=== PATIENT | male | born 1965 | race Caucasian/White ===

== ENCOUNTER 2024-04-23 15:27 | Emergency (ER) | payer SELFPAY ==
[2024-04-23] VITALS (11 sets, daily range): BP systolic 105–137; BP diastolic 59–79; PULSE 62–76; RESP 12–16; TEMP 36.6; O2SAT 94–98; BMI 28.8
--- NOTE | 2024-04-23 15:49 | CT_ITS ---
STUDY: CT ABDOMEN AND PELVIS WITH CONTRAST REASON FOR EXAM: Male, 58 years old. low back/pelvis trauma RADIATION DOSAGE (If Supplied By Facility): CTDIvol = ( 10.83 ) mGy, DLP = ( 639.21 ) mGycm TECHNIQUE: Transaxial images were obtained from the dome of the diaphragm to the symphysis pubis without oral contrast. IV 100mL Isovue-300 was administered. Sagittal and coronal images were reconstructed. Individualized dose optimization techniques were used for this CT. The protocol utilizes one or more of the following dose reduction techniques: automated exposure control, adjustment of mA and/or kV according to patient size,and/or use of iterative reconstruction technique. COMPARISON: None. FINDINGS: The visualized lung bases are unremarkable. The visualized portions of the heart are within normal limits. Simple left hepatic cyst measures 13 mm. Normal gallbladder and extrahepatic biliary system. Normal spleen. Normal pancreas. Normal bilateral adrenal glands. Normal right kidney. 6 cm simple left renal cortical cyst. No further follow-up required as appears simple/benign. Normal visualized stomach. Multiple air-fluid levels in the small bowel. Colonic diverticulosis. The appendix is visualized and appears normal. Normal abdominal aorta. Normal inferior vena cava. Normal retroperitoneum. Normal urinary bladder. Calcifications within the central prostate. Prostate appears prominent. Anterior abdominal wall mesh. Fat-containing umbilical hernia. Degenerative disc disease L5-S1. Mild scoliosis. CT/Abdomen/Pelvis W IV Cont ONLY IMPRESSION: Ileus. Nondisplaced fractures of the seventh eighth ninth 10th and 11th ribs on the left posteriorly. Avulsion fracture transverse process L3 on the left. Electronically Signed: Donal Kirkpatrick MD at 17:08 EDT ,
--- NOTE | 2024-04-23 15:54 | EX.ED.GENINJ ---
HPI History of Present Illness Chief Complaint: Fall Informant: patient, spouse/S.O. and EMS Narrative Narrative: 58-year-old male was on a ladder blowing out the leaf gutters when he fell backwards landing what he believes is the ladder and leaf blower backpack he had on. He notes pain in the low back. No loss of consciousness. He denies headache abdominal pain. Notes the pain seems to wrap down towards the lower anterior pelvis. EMS notes abrasion contusion to posterior left elbow little finger of hand. He does not take any medications/blood thinners. No vomiting. He denies any loss of functionality of the lower EXTR both motor and sensory. PFSH PFSH Home Medications ?Medication ?Instructions ?Recorded ?Last Taken ?Type NK 04/23/24 Unknown History Allergy/AdvReac Type Severity Reaction Status Date / Time No Known Allergies Allergy Verified 04/23/24 15:29 Surgical History History of tonsillectomy and adenoidectomy Hx of hernia repair Social History Smoking Status: Never smoker ROS ROS ED Constitutional Constitutional ED: Denies chills, fever(s) or weight loss Eyes Eyes: Denies change in vision or diplopia ENT ENT ED: Denies ear pain, rhinorrhea or sore throat Cardiovascular Cardiovascular: Denies chest pain, orthopnea, palpitations or racing heartbeat Respiratory/Chest Respiratory/Chest: Denies cough, dyspnea or orthopnea Gastrointestinal Gastrointestinal: Denies abdominal pain, diarrhea, nausea or vomiting Genitourinary Genitourinary ED: Denies dysuria, hematuria or urinary frequency Musculoskeletal Musculoskeletal: Reports back pain and other Details: Lower pelvis pain ; Denies arthralgias, myalgias or neck pain Integumentary Reports Abrasions; Denies abscess or rash Neurologic Neurologic: Denies headache(s), paresthesias or weakness Psychiatric Psychiatric: Denies anxiety, depression, suicidal ideation or suicidal thoughts Endocrine Endocrinology: Denies polydipsia, polyphagia or polyuria Allergic/Immunologic Allergic/Immunologic ED: Denies mouth swelling, tongue swelling or urticaria EXAM Physical Exam Const Vital Signs: 04/23/24 15:29 04/23/24 15:34 04/23/24 16:28 Temperature 97.9 F 97.9 F Temperature Source Oral Pulse Rate 76 74 Respiratory Rate 16 16 Respiratory Effort Normal Non-Labored Respiratory Depth Normal Respiratory Pattern Normal Blood Pressure 137/67 H 105/63 Blood Pressure Mean 90 77 Pulse Ox 97 97 98 Oxygen Delivery Method Room Air Room Air Room Air 04/23/24 17:00 04/23/24 18:00 04/23/24 19:00 Temperature Temperature Source Pulse Rate 64 63 66 Respiratory Rate 16 16 16 Respiratory Effort Respiratory Depth Respiratory Pattern Blood Pressure 125/72 H 126/79 H 119/72 Blood Pressure Mean 89 94 87 Pulse Ox 98 98 98 Oxygen Delivery Method Room Air Room Air Room Air Positive well nourished and well developed General Appearance ED: well developed and NAD HEENT Reports normocephalic, head/scalp atraumatic and moist mucous membranes Eyes PERRL and EOMs intact bilaterally Neck no lymphadenopathy, supple and no JVD Neck Narrative: Patient initially in c-collar. He has no midline tenderness no paraspinal tenderness. He has full painless range of motion. Chest Wall inspection of chest normal and palpation of chest normal Resp normal respiratory effort and clear to auscultation bilaterally Cardio regular rate, regular rhythm and no murmurs GI normal to inspection, nondistended, normoactive bowel sounds and non-tender Palpation: soft Back/Spine no CVA tenderness Back/Spine Narrative: Patient has focal tenderness around L3-L5 in the midline and paraspinally. He has tenderness in the area of the left iliac crest posteriorly Extremity normal to inspection General Extremety ED: Negative for edema General Extremity: Negative for edema Neuro oriented x3, CN's II-XII intact bilaterally, moves all extremities, no focal motor deficits and no sensory deficits noted Mereta Coma Scale: document GCS findings Spontaneous Obeys Commands Oriented 15 Sensorium / Orientation: alert Motor Exam: strength 5/5 throughout Deep Tendon Reflexes: Rt Patellar (L4): 2+, Lt Patellar (L4): 2+, Rt Ankle (S1): 2+ and Lt Ankle (S1): 2+ Deep Tendon Reflexes Back: Rt Patellar (L4): 2+, Lt Patellar (L4): 2+, Rt Ankle (S1): 2+ and Lt Ankle (S1): 2+ Psych mental status grossly normal Mood & Affect: Negative for depressed or tearful Skin no rashes or lesions noted Skin Narrative: Superficial abrasions noted to left middle finger left posterior elbow with small contusion. MDM MDM MDM Narrative Medical decision making narrative: Differential diagnosis includes but not limited to rib fracture lumbar spine fracture thoracic spine fracture pelvic fracture liver spleen renal laceration hematoma Patient blood work shows a slight leukocytosis nonspecific at 11.1 normal creatinine 0.93 glucose 126 LFTs within normal limits. CT of the pelvis with IV contrast was obtained which demonstrates left rib fractures of the seventh or eighth ninth 10th and 11th ribs. There is a nondisplaced transverse process fracture of L3. There is soft tissue contusion noted of the back. Patient initially received Dilaudid and Ativan for pain control and muscle spasm. Because of the above injuries additional CTs of the head cervical spine and chest were obtained. Small amount of presumed hemothorax is noted but no significant pneumothorax or large pulmonary contusion is seen. Patient and his were updated several times by this physician. I spoke with them about transferring to trauma center given the above findings as this institution is not a trauma center. They are requesting [facility]. I spoke with Dr. Bautista from trauma surgery who is accepted the patient. ED attending was notified. We are currently awaiting ground transportation. History & Record Review Discussion w/independent historian: Patient and Significant other Lab Data Attestation: I reviewed the patient's lab results. Labs: Laboratory Results - last 24 hr 04/23/24 15:52 WBC 11.1 H RBC 4.64 Hgb 13.6 Hct 40.8 MCV 87.9 MCH 29.3 MCHC 33.3 RDW Std Deviation 42.8 RDW Coeff of Robby 13.3 Plt Count 247 MPV 9.6 Immature Gran % (Auto) 0.900 Neut % (Auto) 64.4 Lymph % (Auto) 27.3 Grayson % (Auto) 5.7 Eos % (Auto) 1.1 Baso % (Auto) 0.6 Absolute Neuts (auto) 7.1 Absolute Lymphs (auto) 3.02 Nucleated RBC % 0 Sodium 140 Potassium 3.6 Chloride 109 H Carbon Dioxide 26.0 Anion Gap 5 BUN 19 H Creatinine 0.93 Estim Creat Clear Calc 91.21 Est GFR (MDRD) Af Amer 106 Est GFR (MDRD) Non-Af 88 BUN/Creatinine Ratio 20.4 H Glucose 126 H Calcium 8.7 Total Bilirubin 1.00 Direct Bilirubin 0.17 AST 36 ALT 39 Alkaline Phosphatase 58 Total Protein 6.5 Albumin 3.6 Globulin 2.9 Radiography Diagnostic Testing: Clinical Impression(s) from Imaging Studies Abdomen/Pelvis CT 04/23/24 15:49 IMPRESSION: Ileus. Nondisplaced fractures of the seventh eighth ninth 10th and 11th ribs on the left posteriorly. Avulsion fracture transverse process L3 on the left. Electronically Signed: Donal Kirkpatrick MD at 17:08 EDT Reading Location ID and State: [employer] / [place] Tel , Service support , Brain CT 04/23/24 17:40 IMPRESSION: Normal unenhanced CT scan of the brain. Electronically Signed: Donal Kirkpatrick MD at 18:57 EDT Reading Location ID and State: [employer] [place] Tel , Service support , Cervical Spine CT 04/23/24 17:40 IMPRESSION: No fracture Electronically Signed: Donal Kirkpatrick MD at 19:09 EDT Reading Location ID and State: [employer] / [place] Tel , Service support , Chest CT 04/23/24 17:40 IMPRESSION: Nondisplaced fracture of the posterior seventh 8/9 and 10th ribs on the left. No pneumothorax. Electronically Signed: Donal Kirkpatrick MD at 19:06 EDT Reading Location ID and State: [employer] / [place] Tel , Service support , Management Discussion w/another healthcare provider: Leak Gang Supervisor ([facility] Trauma Surgery Dr. Bautista) Discharge Plan Triage Chief Complaint: Fall ED Provider: Cam Thomas Dx/Rx/DC Orders Clinical Impression: Lumbar transverse process fracture, Multiple fractures of ribs of left side, Fall, Back contusion Prescriptions: No Action NK Primary Care Provider: Tyler Meadows Referrals: Tyler Meadows DO [Primary Care Provider] - Print Language: Malay Disposition Disposition: Acute Care Hospital Discharge Location: [facility]
[2024-04-23] MEDS: HYDROmorphone 1 MG/ML Syringe IV ×2 (15:56→23:55)
[2024-04-23] MEDS: Ondansetron 4 MG/2 ML Vial IV (15:56)
[2024-04-23] MEDS: LORazepam 2 MG/ML Syringe 1 MG IV (15:57)
[2024-04-23 16:05] LABS: Absolute Lymphocyte Count 3.02 X10^3/uL (0.83-4.51); Absolute Neutrophil Count 7.1 X10^3/uL (2.0-7.7); Basophil# 0.07 X10^3/uL; Basophil% 0.6 % (0-1); Eosinophil# 0.12 X10^3/uL; Eosinophils% 1.1 % (0-5); Hematocrit 40.8 % (40-54); Hemoglobin 13.6 g/dL (13.0-16.5); Lymphocyte # 3.02 X10^3/ul (0.83-4.51); Lymphocyte % 27.3 % (19-41); Mean Corp Hgb Conc 33.3 g/dL (32-36); Mean Corpuscular Hgb 29.3 pg (27.0-32.0); Mean Corpuscular Volume 87.9 fL (80-94); Mean Platelet Vol. 9.6 fl (6.2-12.0); Monocyte# 0.63 X10^3/uL; Monocyte% 5.7 % (0-10); NRBC Flagged by Analyzer 0 % (0-5); Neutrophil # 7.11 X10^3/uL (2.7-7.7); Neutrophil % 64.4 % (47-70); Platelet Count 247 K/mm3 (150-450); RBC Distribution Width CV 13.3 % (11.6-14.6); RBC Distribution Width SD 42.8 fl (35.1-43.9); Red Blood Count 4.64 M/mm3 (4.6-6.2); White Blood Count 11.1 K/mm3 (4.4-11.0)
[2024-04-23 16:21] LABS: AST(SGOT) 36 U/L (15-37); Alanine Aminotransfer ALT/SGPT 39 U/L (16-61); Albumin, Serum 3.6 g/dL (3.2-5.0); Alkaline Phosphatase 58 U/L (45-117); Anion Gap 5 (5-15); BUN 19 mg/dL (7-18); BUN/Creat Ratio 20.4 RATIO (10-20); Bilirubin, Direct 0.17 mg/dL (0.00-0.30); Calcium,Total 8.7 mg/dL (8.5-10.1); Chloride 109 mmol/L (98-107); Creatinine, Serum 0.93 mg/dL (0.70-1.30); EST Glomerular Filtration Rate 88 mL/min (>60); Est Glom Filt Rate - Afr Amer 106 mL/min (>60); Estimated Creatinine Clearance 91.21 ml/min; Globulin 2.9 g/dL (2.2-4.2); Glucose 126 mg/dL (74-106); Potassium 3.6 mmol/L (3.5-5.1); Protein, Total 6.5 g/dL (6.4-8.2); Sodium Level 140 mmol/L (136-145)
--- NOTE | 2024-04-23 17:40 | CT_ITS ---
INDICATION: left rib trauma (just given contrast) EXAMINATION: CT CHEST WITHOUT CONTRAST - CT Chest W/O Contrast Injection TECHNIQUE: Helically acquired images were obtained of the chest. A radiation dose optimization technique was used for this scan. The protocol utilizes one or more of the following dose reduction techniques: automated exposure control, adjustment of mA and/or kV according to patient size,and/or use of iterative reconstruction technique. IV Contrast dosage and agent: None. COMPARISON: None. FINDINGS: LUNGS, PLEURA AND LARGE AIRWAYS: No masses, consolidation, or edema. No pleural effusion or thickening. No pneumothorax. Bilateral subsegmental atelectasis. Possible Bochdalek hernia right hemidiaphragm containing only fat. THYROID: No thyroid lesions. HEART AND PERICARDIUM: Calcific coronary artery disease. No pericardial effusion. CORONARY ARTERIES: Coronary artery calcification present. VESSELS: Thoracic aorta is not dilated. MEDIASTINUM AND FRITZ: No mediastinal or hilar adenopathy. Esophagus is unremarkable. No hiatal hernia. UPPER ABDOMEN: No acute pathology. BONES: Nondisplaced fractures of the seventh eighth ninth and 10th ribs on the left. CT/Chest without Contrast IMPRESSION: Nondisplaced fracture of the posterior seventh 8/9 and 10th ribs on the left. No pneumothorax. Electronically Signed: Donal Kirkpatrick MD at 19:06 EDT ,
--- NOTE | 2024-04-23 17:40 | CT_ITS ---
STUDY: CT BRAIN WITHOUT CONTRAST REASON FOR EXAM: Male, 58 years old. injury RADIATION DOSAGE (If Supplied By Facility): CTDIvol = ( 44.99 ) mGy, DLP = ( 812.88 ) mGycm TECHNIQUE: Transaxial CT imaging of the brain was performed without administration of intravenous contrast material. Individualized dose optimization techniques were used for this CT. The protocol utilizes one or more of the following dose reduction techniques: automated exposure control, adjustment of mA and/or kV according to patient size,and/or use of iterative reconstruction technique. COMPARISON: No relevant priors. FINDINGS: Normal soft tissue structures. Normal calvarium. Normal size ventricles and extra-axial spaces for the patient''s age. Normal white matter tracts of the cerebral hemispheres. Normal basal ganglia and thalami. Normal brainstem. Normal cerebellum. There is no intracranial hemorrhage. There are no findings of an acute ischemic infarction. Normal visualized paranasal sinuses. CT/Brain/Head without Contrast IMPRESSION: Normal unenhanced CT scan of the brain. Electronically Signed: Donal Kirkpatrick MD at 18:57 EDT ,
--- NOTE | 2024-04-23 17:40 | CT_ITS ---
STUDY: CT CERVICAL SPINE WITHOUT CONTRAST REASON FOR EXAM: Male, 58 years old. trauma RADIATION DOSAGE (If Supplied By Facility): CTDIvol = ( 22.17 ) mGy, DLP = ( 474.68 ) mGycm TECHNIQUE: High resolution transaxial imaging was performed without contrast material. Sagittal and coronal images were reconstructed. Individualized dose optimization techniques were used for this CT. The protocol utilizes one or more of the following dose reduction techniques: automated exposure control, adjustment of mA and/or kV according to patient size,and/or use of iterative reconstruction technique. COMPARISON: None FINDINGS: Spondylosis. Normal craniovertebral junction. Normal anterior atlantoaxial articulation. Normal odontoid process. Normal cervical lordosis. Normal vertebral bodies and posterior osseous elements. C2-3: Normal endplates. Normal disc height and morphology. Normal central canal and intervertebral neuroforamina. C3-4: Normal endplates. Normal disc height and morphology. Normal central canal and intervertebral neuroforamina. C4-5: Normal endplates. Normal disc height and morphology. Normal central canal and intervertebral neuroforamina. C5-6: Normal endplates. Normal disc height and morphology. Normal central canal and intervertebral neuroforamina. C6-7: Normal endplates. Normal disc height and morphology. Normal central canal and intervertebral neuroforamina. C7-T1: Normal endplates. Normal disc height and morphology. Normal central canal and intervertebral neuroforamina. Normal visualized soft tissue structures. CT/Spine Cervical without Contras IMPRESSION: No fracture Electronically Signed: Donal Kirkpatrick MD at 19:09 EDT ,
[2024-04-23] MEDS: HYDROmorphone 0.5 MG/0.5 ML SYRINGE IV (17:49)
--- NOTE | 2024-04-23 19:53 | ED.RN ---
REPORT CALLED TO SID TYLER AT [facility].
[2024-04-24] VITALS: BP 120/74; PULSE 65; RESP 13; O2SAT 96
== END 2024-04-24 00:03 | disposition short-term general hospital (02) ==
PROVIDERS: Emergency Provider Emergency Medicine; PCP Family Medicine; Referring Provider Emergency Medicine; Visit Provider Emergency Medicine
DX: S32.038A Other fracture of third lumbar vertebra, initial encounter for closed fracture (principal); S22.42XA Multiple fractures of ribs, left side, initial encounter for closed fracture; S20.229A Contusion of unspecified back wall of thorax, initial encounter; W11.XXXA Fall on and from ladder, initial encounter; Y93.89 Activity, other specified
CPT/HCPCS: 70450; 71250; 72125; 74177; 80048; 80076; 85025; 96374; 96375; 96376; 99285; Q9967; A4216; J2405

== ENCOUNTER 2024-06-02 15:30 | Outpatient (RCR) | payer SELFPAY ==
--- NOTE | 2024-05-05 18:53 | HP.PTEVAL ---
Patient's Visit Information Visit Information Visit Information: ZAIRA MORA is a 58 year old M referred to Physical Therapy by PAVAN MONTERO with a diagnosis of multiple rib fractures, closed transverse L vertebrae FX. Date of Evaluation: 05/05/24 Physical Therapist: GHISLAINE Pearl Visit Plan Frequency: 2x /Week Duration: 2 Months Plan: Pt is not able to lift... only 13 days post fx (11-13) ALL EXERCISES SHOULD BE PAIN FREE 2X/ week for 8 weeks for neutral spine core stability, functional transfers (including bed mobility if needed), AAROM to AROM B shoulder (L sided rib fx's), Postural exercises, LE strength with HEP HEP: bridges, LTR, bug with leg march, supine wand flexion Subjective Subjective: Pt is 13 days past falling off the roof onto concrete and fx 5 ribs (L side 7,8,9,10,11) and 3rd Lumbar transverse process and a lot of muscle trauma. He is still talking pain meds and muscle relaxers for the healing process. He is able to get in and out of his chair. He not dressing or showering on his own. His pain meds have subsided. He took his last oxycodone today and has been alternating between that and Tylenol and now her will alternate Tylenol and IBProf. He is walking quite a bit (2 miles yesterday) and walked to the corner of the road. He does not like to sit very long and wants to keep moving. He keeps trying to stretching back muscles. He was sent here by trauma unit at [facility]. He has lifting restrictions as of now and he sees them next Friday. Increase pain with reaching on the L. The muscle spasms have subsided. He complains mostly of LBP and waist area. If he moves bending FW or crouch down to reach something and has to be very careful or twisting he has increase pain....or even leaning over to brush his teeth. He is retired. He has not attempted sleeping in bed yet and showers with a shower chair. He is able to light cooking. Pain Ribs: Pain Intensity (Out of 10): 0 LBP: Pain Intensity (Out of 10): 0 Objective Objective: Gait: Pt walks with normal gait pattern but very guarded with little arm swing and no trunk rotation SLUMP test neg B Posture: pt sits up with very good posture. He uses his UE to help get out of a chair or scoot back onto the mat table LE MMT: B hip flex 4/5 B knee ext 4/5 B knee flex 4/5 Sit to supine: used max verbal cues to go from sitting to R S/L and the roll onto his back twice today so hopefully pt can get into his bed Supine to sit with max verbal cues to go to R S/L to sitting Pt was able to do a Pelvic tilt with hip march, Small pain free ROM LTR, bridges Pt UE flexion AROM R full ROM and L approx 100 degrees and then increase pain. Pt was able to go farther into flexion in supine with a cane overhead. Balance/Special Test Scores Oswestry Low Back Score: 27 Goals Goal 1:: I HEP Goal Time Frame: 6-8 Weeks Goal 2:: Be able to get in and out of bed painfree Goal Time Frame: 6-8 Weeks Goal 3:: Be able to lift grandson without pain by DC Goal Time Frame: 6-8 Weeks Goal 4:: Pt have full B shoulder AROM without pain Goal Time Frame: 6-8 Weeks Rehabilitation Potential Rehabilitation Potential: Good Anticipated Interventions Patient/Client Instruction: Educate patient on: Condition and Plan of Care For the Purpose of:: To decrease pain, To increase ROM, To improve nutrient delivery to tissue, To improve muscle performance and motor function, To improve ability to perform ADL's, To increase tolerance to activity/condition/position, To improve performance and independence with ADL's and To improve gait and locomotor functions Therapeutic Exercise to Include: Strength training, Body mechanics, Postural training, Gait and locomotor training, Neuromotor development, Active ROM, Dynamic Lumbar Stabilization and Scapular Strength/Stabilization For the Purpose of:: To decrease pain, To increase ROM, To improve nutrient delivery to tissue, To improve muscle performance and motor function, To improve ability to perform ADL's, To increase tolerance to activity/condition/position, To improve performance and independence with ADL's, To decrease level of supervision to perform tasks, To improve ability of physical actions for home/community/work/leisure and To improve gait and locomotor functions Functional Training to Include: Gait training For the Purpose of:: To improve gait and locomotor functions Text: Thank you for the opportunity to evaluate your patient. For Medicare and Medicare HMO plans, please review the plan of care and approve it. It will need to be FAXED BACK to us at [phone] for Medicare purposes. For Medicare only, by signing this I certify the plan of care. Please let me know if there are questions or concerns regarding this plan of care. Physician Signature: Date:
--- NOTE | 2024-06-02 15:46 | HP.PTDCSUM ---
Discharge Summary D/C summary: It has been my pleasure to treat ZAIRA MORA referred by PAVAN MONTERO, with the diagnosis of multiple rib fractures, closed transverse L vertebrae FX for a total of 7 visit(s). Discharge Date: 06/02/24 Please see the following information for a summary of their discharge status. Subjective Subjective: Pt has no pain. He has pain once in awhile he has pain if he stretches too far. He is sleeping in his bed 2/3 of the night and then he goes out into the recliner for the rest of the night. He is able to cross his legs. He is cleared by . Dr said no restrictions and they did not take more x-rays. The trauma in the ribs could last a few months. Pt has full understanding of HEP and ready to be discharge Pain Ribs: Pain Intensity (Out of 10): 0 LBP: Pain Intensity (Out of 10): 0 Overall Improvement % Improvement: 100 Objective Objective/Function: Full B shoulder AROM with no pain Back to full bed mobility Goals Goal 1:: I HEP Goal Progress: Goal Met Goal 2:: Be able to get in and out of bed painfree Goal Progress: Goal Met Goal 3:: Be able to lift grandson without pain by DC Goal Progress: Goal Met Goal 4:: Pt have full B shoulder AROM without pain Goal Progress: Goal Met Plan Plan: DC PT to HEP D/C Information Discharge Comments: DC PT to HEP d/c sentence: If there are questions or concerns regarding this patient's physical therapy, please feel free to call me at [phone]. Thank you for the referral of this patient. Sincerely, Nataly Drummond, MPT Balance/Gait/Functional tests Balance/Special Test Scores Oswestry Low Back Score: 0 Improvement % Improvement: 100
== END 2024-06-02 19:00 | disposition home or self-care (01) ==
LOC: PT 15:30
PROVIDERS: PCP Family Medicine
DX: S22.49XD Multiple fractures of ribs, unspecified side, subsequent encounter for fracture with routine healing (principal); S32.009D Unspecified fracture of unspecified lumbar vertebra, subsequent encounter for fracture with routine healing
CPT/HCPCS: 97110; 97162